=== PATIENT | male | born 1970 ===

== ENCOUNTER 2021-02-21 12:34 | Emergency (ER) | payer OTHER ==
[~2021-02-21] VITALS: Ht 165.1 cm; Wt 73.2 kg
--- NOTE | 2021-02-21 13:26 | NUR ---
PT GABBY FROM THE [facility], PT WAS FOUND ON THE GROUND BY THE SLOT MACHINE. PT STATES "I DRANK A LOT" PT ABLE TO MOVE OVER FROM STRETCHER C MINIMAL ASSISTANCE. PT HAS SLURRED SPEECH. PA AT BS FOR EVAL, PLACED ON 2L NC WHILE SLEEPING. WILL CTM.
--- NOTE | 2021-02-21 15:24 | NUR ---
PT SLEEPING ON CART, RR EVEN NON LABORED. WILL CTM.
--- NOTE | 2021-02-21 16:39 | NUR ---
PT REQUIRES ASSITANCE TO RESTROOM. UNABLE TO SAFELY DC PT AT THIS TIME.
[2021-02-21 16:51] VITALS: BP 143/80
--- NOTE | 2021-02-21 19:21 | NUR ---
Patient given discharge instructions and they have confirmed that they understand the instructions. Patient ambulatory with steady gait. NAD, all questions answered appropriately, denies additional needs at this time. No personal belongings left in room after discharge.
== END 2021-02-21 19:31 | disposition home or self-care (01) ==
LOC: ED 17:24
DX: F10.220 Alcohol dependence with intoxication, uncomplicated (principal); I10 Essential (primary) hypertension; Y90.0 Blood alcohol level of less than 20 mg/100 ml
CPT/HCPCS: 99283